=== PATIENT | female | born 1950 | race Two or more races ===

== ENCOUNTER 2020-02-21 13:02 | Inpatient (IN) | payer OTHER ==
[2020-02-29] MEDS ORDERED: ATORVASTATIN CA20 MG PO (10:23)
[2020-02-29] MEDS ORDERED: LEVO-T100 MCG PO (10:24)
[2020-02-29] MEDS ORDERED: DOXAZOSIN MESYLA2 MG PO (10:24)
[2020-02-29] MEDS ORDERED: HYDROCHLOROTHIA25 MG PO (10:25)
[2020-02-29] MEDS ORDERED: GABAPENTIN300 M2 PO (10:25)
[2020-02-29] MEDS ORDERED: PROTONIX40 MG PO (10:26)
[2020-02-29] MEDS ORDERED: TOPROL XL100 M1 PO (10:26)
[2020-02-29] MEDS ORDERED: ATACAND32 MG PO (10:26)
[2020-02-29] MEDS ORDERED: HUMULIN 70100 UNIT/2 SUBCUTANEO (10:27)
== END 2020-03-07 13:00 | disposition home or self-care (01) | DRG 842 ==
LOC: ADM 02-29 08:00 → O/R 03-06 07:00 → SURH 03-06 11:19 → O/R 03-06 11:19 → CIR.AMB 03-06 11:20 → EDSTATUS 03-07 08:00 → CIR.AMB 03-07 08:00 → O/R 03-07 13:00 → SURH 03-07 17:21
PROVIDERS: ADMIT Specialist; ATTEND Specialist
PROC: 30233P1 Transfusion of Nonautologous Frozen Red Cells into Peripheral Vein, Percutaneous Approach (ICD-10-PCS; 2020-03-06)
PROC: 05H533Z Insertion of Infusion Device into Right Subclavian Vein, Percutaneous Approach (ICD-10-PCS; 2020-03-07)
PROC: 0JHD3XZ Insertion of Tunneled Vascular Access Device into Right Upper Arm Subcutaneous Tissue and Fascia, Percutaneous Approach (ICD-10-PCS; principal; 2020-03-07 07:00)
DX: C90.00 Multiple myeloma not having achieved remission (principal); D64.9 Anemia, unspecified; I10 Essential (primary) hypertension; E11.9 Type 2 diabetes mellitus without complications; E03.8 Other specified hypothyroidism
CPT/HCPCS: 36561; C1751

== ENCOUNTER 2020-04-20 09:58 | Inpatient (IN) | payer OTHER ==
[~2020-04-20] VITALS: Ht 61 cm; Wt 5.0 kg
[~2020-04-20 09:58] MED LIST: ATACAND32 MG PO; ATORVASTATIN CA20 MG PO; DOXAZOSIN MESYLA2 MG PO; GABAPENTIN300 M2 PO; HUMULIN 70100 UNIT/2 SUBCUTANEO; HYDROCHLOROTHIA25 MG PO; LEVO-T100 MCG PO; PROTONIX40 MG PO; TOPROL XL100 M1 PO
[2020-04-24] MEDS ORDERED: Neurin-Sl Tablet Sl SL (12:05)
[2020-04-24] MEDS ORDERED: ATACAND32 MG PO (12:05)
[2020-04-24] MEDS ORDERED: LIPITOR20 MG PO (12:05)
[2020-04-24] MEDS ORDERED: GABAPENTIN300 MG PO (12:05)
[2020-04-24] MEDS ORDERED: HYDROCHLOROTHIA25 MG PO (12:05)
[2020-04-24] MEDS ORDERED: B Complex CAPSULE PO (12:05)
[2020-04-24] MEDS ORDERED: LEVOTHYROXINE100 MCG PO (12:05)
[2020-04-24] MEDS ORDERED: ST. JOSEPH ASPI81 M2 PO (12:05)
[2020-04-24] MEDS ORDERED: TRAMADOL HCL50 MG PO (12:05)
[2020-04-24] MEDS ORDERED: CARdura 2MG TABLET PO (12:05)
[2020-04-24] MEDS ORDERED: TOPROL XL100 M1 PO (12:05)
== END 2020-04-24 12:22 | disposition home or self-care (01) | DRG 842 ==
LOC: ER 09:58 → MEDJ 15:41 → MEDI 15:41
PROVIDERS: ADMIT Internal Medicine; ATTEND Internal Medicine
PROC: 30233N1 Transfusion of Nonautologous Red Blood Cells into Peripheral Vein, Percutaneous Approach (ICD-10-PCS; principal; 2020-04-20)
PROC: 05HC33Z Insertion of Infusion Device into Left Basilic Vein, Percutaneous Approach (ICD-10-PCS; 2020-04-20)
PROC: B54DZZZ Ultrasonography of Bilateral Lower Extremity Veins (ICD-10-PCS; 2020-04-21)
DX: C90.00 Multiple myeloma not having achieved remission (principal); Z92.21 Personal history of antineoplastic chemotherapy; D63.0 Anemia in neoplastic disease; E11.22 Type 2 diabetes mellitus with diabetic chronic kidney disease; N18.9 Chronic kidney disease, unspecified; D63.1 Anemia in chronic kidney disease; E11.21 Type 2 diabetes mellitus with diabetic nephropathy; E11.42 Type 2 diabetes mellitus with diabetic polyneuropathy; G89.3 Neoplasm related pain (acute) (chronic); Z20.828 Contact with and (suspected) exposure to other viral communicable diseases

== ENCOUNTER 2020-04-29 18:12 | Emergency (ER) | payer OTHER ==
[~2020-04-29] VITALS: Ht 160 cm; Wt 95.3 kg
[~2020-04-29 18:12] MED LIST changes: +B Complex CAPSULE PO; +CARdura 2MG TABLET PO; +GABAPENTIN300 MG PO; +LEVOTHYROXINE100 MCG PO; +LIPITOR20 MG PO; +Neurin-Sl Tablet Sl SL; +ST. JOSEPH ASPI81 M2 PO; +TRAMADOL HCL50 MG PO
[2020-04-29] MEDS ORDERED: REVLIMID25 MG PO (19:03)
[2020-04-29] MEDS ORDERED: ACYCLOVIR400 MG PO (19:03)
[2020-04-29] MEDS ORDERED: ECOTRIN81 MG PO (19:03)
== END 2020-04-30 01:04 | disposition home or self-care (01) ==
LOC: ER 18:12
DX: R10.13 Epigastric pain (principal); R10.32 Left lower quadrant pain; Z03.818 Encounter for observation for suspected exposure to other biological agents ruled out

== ENCOUNTER 2020-05-10 19:01 | Emergency (ER) | payer OTHER ==
[~2020-05-10] VITALS: Ht 160 cm; Wt 96.6 kg
[~2020-05-10 19:01] MED LIST changes: +ACYCLOVIR400 MG PO; +ECOTRIN81 MG PO; +REVLIMID25 MG PO
[2020-05-11] MEDS ORDERED: CALTRATE 600+D1 EACH PO (06:10)
== END 2020-05-11 06:25 | disposition home or self-care (01) ==
LOC: ER 19:01
DX: M54.5 Low back pain (principal); B34.9 Viral infection, unspecified; E83.51 Hypocalcemia

== ENCOUNTER 2020-05-24 20:10 | Emergency (ER) | payer OTHER ==
[~2020-05-24] VITALS: Ht 160 cm; Wt 95.3 kg
[~2020-05-24 20:10] MED LIST changes: +CALTRATE 600+D1 EACH PO
[2020-05-25] MEDS ORDERED: CALTRATE 600+D1 EACH PO (04:44)
== END 2020-05-25 05:33 | disposition home or self-care (01) ==
LOC: ER 20:10
DX: R20.2 Paresthesia of skin (principal); G25.2 Other specified forms of tremor; Z03.818 Encounter for observation for suspected exposure to other biological agents ruled out; E58 Dietary calcium deficiency

== ENCOUNTER 2020-05-29 16:27 | Emergency (ER) | payer OTHER ==
[~2020-05-29] VITALS: Ht 160 cm; Wt 94.8 kg
== END 2020-05-29 21:06 | disposition home or self-care (01) ==
LOC: ER 16:27
DX: M94.0 Chondrocostal junction syndrome [Tietze] (principal); R07.89 Other chest pain

== ENCOUNTER 2020-06-11 16:23 | Emergency (ER) | payer OTHER ==
[~2020-06-11] VITALS: Ht 160 cm; Wt 94.8 kg
[2020-06-12] MEDS ORDERED: PEPCID AC20 MG PO (01:07)
[2020-06-12] MEDS ORDERED: ONDANSETRON HCL4 MG PO (01:10)
== END 2020-06-12 01:25 | disposition home or self-care (01) ==
LOC: ER 16:23
DX: K29.60 Other gastritis without bleeding (principal); K52.89 Other specified noninfective gastroenteritis and colitis; C90.00 Multiple myeloma not having achieved remission; D63.0 Anemia in neoplastic disease; E87.6 Hypokalemia; E83.51 Hypocalcemia; Z03.818 Encounter for observation for suspected exposure to other biological agents ruled out

== ENCOUNTER 2020-06-19 18:36 | Inpatient (IN) | payer OTHER ==
[~2020-06-19] VITALS: Ht 160 cm; Wt 94.8 kg
[~2020-06-19 18:36] MED LIST changes: +ONDANSETRON HCL4 MG PO; +PEPCID AC20 MG PO
[2020-06-23] MEDS ORDERED: SUCRALFATE1 GM (09:20)
[2020-06-23] MEDS ORDERED: LANSOPRAZOLE30 MG (09:20)
[2020-06-23] MEDS ORDERED: B COMPLEX1 EACH (09:21)
[2020-06-23] MEDS ORDERED: B Complex CAPSULE PO (16:40)
[2020-06-23] MEDS ORDERED: SIMETHICONE125 M1 PO (16:40)
[2020-06-23] MEDS ORDERED: ATACAND32 MG PO (16:40)
[2020-06-23] MEDS ORDERED: TOPROL XL100 M1 PO (16:40)
[2020-06-23] MEDS ORDERED: LIPITOR20 MG PO (16:40)
[2020-06-23] MEDS ORDERED: Neurin-Sl Tablet Sl SL (16:40)
[2020-06-23] MEDS ORDERED: LEVOTHYROXINE100 MCG PO (16:40)
[2020-06-23] MEDS ORDERED: HYDROCHLOROTHIA25 MG PO (16:40)
[2020-06-23] MEDS ORDERED: GABAPENTIN300 MG PO (16:40)
== END 2020-06-23 17:08 | disposition home or self-care (01) | DRG 812 ==
LOC: ER 18:36 → MEDI 06-20 00:10 → SEC-K 06-20 00:10 → MEDI 06-20 11:31
PROVIDERS: ADMIT Internal Medicine; ATTEND Internal Medicine
PROC: 8E0ZXY6 Isolation (ICD-10-PCS; principal; 2020-06-20)
PROC: 30233N1 Transfusion of Nonautologous Red Blood Cells into Peripheral Vein, Percutaneous Approach (ICD-10-PCS; 2020-06-20)
DX: D64.9 Anemia, unspecified (principal); C90.00 Multiple myeloma not having achieved remission; E11.22 Type 2 diabetes mellitus with diabetic chronic kidney disease; I12.9 Hypertensive chronic kidney disease with stage 1 through stage 4 chronic kidney disease, or unspecified chronic kidney disease; N18.9 Chronic kidney disease, unspecified; E03.9 Hypothyroidism, unspecified; Z79.84 Long term (current) use of oral hypoglycemic drugs

== ENCOUNTER 2020-10-08 20:11 | Emergency (ER) | payer OTHER ==
[~2020-10-08] VITALS: Ht 160 cm; Wt 91.6 kg
[~2020-10-08 20:11] MED LIST changes: +B COMPLEX1 EACH; +LANSOPRAZOLE30 MG; +SIMETHICONE125 M1 PO; +SUCRALFATE1 GM
== END 2020-10-08 22:58 | disposition home or self-care (01) ==
LOC: ER 20:11 → CPU-OBS 21:07 → ER 21:07
DX: R07.89 Other chest pain (principal); M13.88 Other specified arthritis, other site

== ENCOUNTER 2020-10-11 07:10 | Outpatient (CLI) | payer OTHER | END 2020-10-11 15:00 | disposition home or self-care (01) | LOC: RAD 07:10 → LAB 07:10 | PROVIDERS: ATTEND Internal Medicine | DX: R07.89 Other chest pain (principal); C90.00 Multiple myeloma not having achieved remission ==

== ENCOUNTER 2020-10-13 07:57 | Outpatient (CLI) | payer OTHER | END 2020-10-13 09:02 | disposition home or self-care (01) | LOC: LAB 07:57 | PROVIDERS: ATTEND Internal Medicine | DX: C90.00 Multiple myeloma not having achieved remission (principal) ==

== ENCOUNTER 2020-12-26 15:47 | Emergency (ER) | payer OTHER ==
[~2020-12-26] VITALS: Ht 160 cm; Wt 96.2 kg
== END 2020-12-26 19:26 | disposition home or self-care (01) ==
LOC: ER 15:47
DX: E11.40 Type 2 diabetes mellitus with diabetic neuropathy, unspecified (principal); D64.9 Anemia, unspecified

== ENCOUNTER 2021-05-10 12:12 | Inpatient (IN) | payer OTHER ==
[~2021-05-10] VITALS: Ht 157.5 cm; Wt 93.9 kg
[2021-05-14] MEDS ORDERED: ALLOPURINOL100 MG (08:07)
[2021-05-14] MEDS ORDERED: ELIQUIS5 MG (08:07)
[2021-05-14] MEDS ORDERED: FAMOTIDINE40 MG (08:07)
[2021-05-14] MEDS ORDERED: OMEPRAZOLE40 MG (08:07)
[2021-05-14] MEDS ORDERED: PANTOPRAZOLE SO40 MG (08:08)
[2021-05-14] MEDS ORDERED: FUROSEMIDE20 MG (08:08)
[2021-05-14] MEDS ORDERED: DEXAMETHASONE4 MG (08:08)
[2021-05-14] MEDS ORDERED: SUCRALFATE1 GM (08:08)
[2021-05-14] MEDS ORDERED: CALCITRIOL0.5 MCG (08:08)
[2021-05-18] MEDS ORDERED: TOPROL XL100 M1 PO (12:56)
[2021-05-18] MEDS ORDERED: FOLIC ACID1 MG PO (12:56)
[2021-05-18] MEDS ORDERED: B COMPLEX1 EACH PO (12:56)
[2021-05-18] MEDS ORDERED: Neurin-Sl Tablet Sl SL (12:56)
[2021-05-18] MEDS ORDERED: INTESTINEX680 M1 PO (12:56)
[2021-05-18] MEDS ORDERED: XOPENEX0.63 MG/3 IH (12:56)
[2021-05-18] MEDS ORDERED: LEVOTHYROXINE100 MCG PO (12:56)
[2021-05-18] MEDS ORDERED: ECOTRIN81 MG PO (12:56)
[2021-05-18] MEDS ORDERED: DOXAZOSIN MESYLA2 MG PO (12:56)
[2021-05-18] MEDS ORDERED: ALLOPURINOL100 MG PO (12:56)
[2021-05-18] MEDS ORDERED: LIPITOR20 MG PO (12:56)
[2021-05-18] MEDS ORDERED: GABAPENTIN300 MG PO (12:56)
[2021-05-18] MEDS ORDERED: BENZONATATE100 MG PO (12:56)
== END 2021-05-18 15:45 | disposition home or self-care (01) | DRG 178 ==
LOC: ER 12:12 → MEDJ 05-11 12:39
PROVIDERS: ADMIT Internal Medicine; ATTEND Internal Medicine
PROC: BW24ZZZ Computerized Tomography (CT Scan) of Chest and Abdomen (ICD-10-PCS; principal; 2021-05-11)
PROC: 02HV33Z Insertion of Infusion Device into Superior Vena Cava, Percutaneous Approach (ICD-10-PCS; 2021-05-14)
DX: J69.0 Pneumonitis due to inhalation of food and vomit (principal); N39.0 Urinary tract infection, site not specified; C90.00 Multiple myeloma not having achieved remission; K52.89 Other specified noninfective gastroenteritis and colitis; E11.40 Type 2 diabetes mellitus with diabetic neuropathy, unspecified; Z79.4 Long term (current) use of insulin; E03.8 Other specified hypothyroidism; B96.89 Other specified bacterial agents as the cause of diseases classified elsewhere; Z20.822 Contact with and (suspected) exposure to COVID-19; I10 Essential (primary) hypertension; Z94.6 Bone transplant status

== ENCOUNTER 2021-06-01 19:07 | Emergency (ER) | payer OTHER ==
[~2021-06-01] VITALS: Ht 160 cm; Wt 91.6 kg
[~2021-06-01 19:07] MED LIST changes: +ALLOPURINOL100 MG; +ALLOPURINOL100 MG PO; +B COMPLEX1 EACH PO; +BENZONATATE100 MG PO; +CALCITRIOL0.5 MCG; +DEXAMETHASONE4 MG; +ELIQUIS5 MG; +FAMOTIDINE40 MG; +FOLIC ACID1 MG PO; +FUROSEMIDE20 MG; +INTESTINEX680 M1 PO; +OMEPRAZOLE40 MG; +PANTOPRAZOLE SO40 MG; +XOPENEX0.63 MG/3 IH
[2021-06-01] MEDS ORDERED: DULOXETINE 30 MG (19:40)
== END 2021-06-01 23:46 | disposition home or self-care (01) ==
LOC: ER 19:07
DX: R11.0 Nausea (principal); M54.59 Other low back pain; E11.40 Type 2 diabetes mellitus with diabetic neuropathy, unspecified

== ENCOUNTER 2021-06-29 07:44 | Outpatient (CLI) | payer OTHER ==
[~2021-06-29 07:44] MED LIST changes: +DULOXETINE 30 MG
== END 2021-06-29 07:45 | disposition home or self-care (01) ==
LOC: LAB 07:44
PROVIDERS: ATTEND Internal Medicine Hematology & Oncology
DX: D50.8 Other iron deficiency anemias (principal); I10 Essential (primary) hypertension; R74.02 Elevation of levels of lactic acid dehydrogenase [LDH]; K76.89 Other specified diseases of liver; E78.2 Mixed hyperlipidemia; E03.8 Other specified hypothyroidism; D47.2 Monoclonal gammopathy; C90.00 Multiple myeloma not having achieved remission; R97.0 Elevated carcinoembryonic antigen [CEA]; R97.8 Other abnormal tumor markers; D63.0 Anemia in neoplastic disease; E11.22 Type 2 diabetes mellitus with diabetic chronic kidney disease

== ENCOUNTER 2021-07-29 12:37 | Inpatient (IN) | payer OTHER ==
[~2021-07-29] VITALS: Ht 157.5 cm; Wt 98.0 kg
[2021-07-29] MEDS ORDERED: CYANOCOBAL1000 MCG/1 (13:31)
[2021-07-29] MEDS ORDERED: INTEGRA PLUS C1 EACH (13:32)
[2021-07-31] MEDS ORDERED: DULOXETINE HCL30 MG (10:53)
[2021-07-31] MEDS ORDERED: ABANEU-SL TABL1 EACH (10:54)
== END 2021-07-31 14:36 | disposition home or self-care (01) | DRG 206 ==
LOC: ER 12:37 → MEDI 19:39
PROVIDERS: ADMIT Internal Medicine; ATTEND Internal Medicine
PROC: 02HV33Z Insertion of Infusion Device into Superior Vena Cava, Percutaneous Approach (ICD-10-PCS; principal; 2021-07-29)
PROC: B24BZZZ Ultrasonography of Heart with Aorta (ICD-10-PCS; 2021-07-30)
DX: M94.0 Chondrocostal junction syndrome [Tietze] (principal); C90.00 Multiple myeloma not having achieved remission; N39.0 Urinary tract infection, site not specified; I25.118 Atherosclerotic heart disease of native coronary artery with other forms of angina pectoris; D63.1 Anemia in chronic kidney disease; R07.89 Other chest pain; E78.49 Other hyperlipidemia; E11.21 Type 2 diabetes mellitus with diabetic nephropathy; Z79.4 Long term (current) use of insulin; I12.9 Hypertensive chronic kidney disease with stage 1 through stage 4 chronic kidney disease, or unspecified chronic kidney disease; E11.22 Type 2 diabetes mellitus with diabetic chronic kidney disease; N18.9 Chronic kidney disease, unspecified; Z94.6 Bone transplant status; Z20.822 Contact with and (suspected) exposure to COVID-19; B96.89 Other specified bacterial agents as the cause of diseases classified elsewhere; E66.8 Other obesity

== ENCOUNTER 2021-08-28 20:31 | Emergency (ER) | payer OTHER ==
[~2021-08-28] VITALS: Ht 162.6 cm; Wt 114.3 kg
[~2021-08-28 20:31] MED LIST changes: +ABANEU-SL TABL1 EACH; +CYANOCOBAL1000 MCG/1; +DULOXETINE HCL30 MG; +INTEGRA PLUS C1 EACH
[2021-08-29] MEDS ORDERED: MOBIC15 MG PO (05:38)
== END 2021-08-29 06:13 ==
LOC: ER 20:31
DX: R07.89 Other chest pain (principal); Z20.822 Contact with and (suspected) exposure to COVID-19

== ENCOUNTER 2021-09-05 23:17 | Inpatient (IN) | payer OTHER ==
[~2021-09-05] VITALS: Ht 160 cm; Wt 95.3 kg
[~2021-09-05 23:17] MED LIST changes: +MOBIC15 MG PO
[2021-09-06] MEDS ORDERED: RETACRIT10000 UNIT (11:41)
[2021-09-06] MEDS ORDERED: ZANAFLEX2 MG (11:41)
[2021-09-06] MEDS ORDERED: MECLIZINE HCL25 MG (11:42)
[2021-09-06] MEDS ORDERED: VITAMIN D3250 MCG (11:43)
[2021-09-06] MEDS ORDERED: PREGABALIN75 MG (11:43)
== END 2021-09-17 17:06 | disposition home or self-care (01) | DRG 372 ==
LOC: ER 23:17 → SEC-K 09-06 10:11 → MEDJ 09-06 16:06
PROVIDERS: ADMIT Specialist; ATTEND Specialist
PROC: 02HV33Z Insertion of Infusion Device into Superior Vena Cava, Percutaneous Approach (ICD-10-PCS; 2021-09-07)
PROC: 30233N1 Transfusion of Nonautologous Red Blood Cells into Peripheral Vein, Percutaneous Approach (ICD-10-PCS; 2021-09-08)
PROC: BW21YZZ Computerized Tomography (CT Scan) of Abdomen and Pelvis using Other Contrast (ICD-10-PCS; 2021-09-10)
PROC: BW24ZZZ Computerized Tomography (CT Scan) of Chest and Abdomen (ICD-10-PCS; principal; 2021-09-12)
DX: A04.72 Enterocolitis due to Clostridium difficile, not specified as recurrent (principal); N39.0 Urinary tract infection, site not specified; C90.00 Multiple myeloma not having achieved remission; C79.51 Secondary malignant neoplasm of bone; B96.89 Other specified bacterial agents as the cause of diseases classified elsewhere; E11.21 Type 2 diabetes mellitus with diabetic nephropathy; Z79.4 Long term (current) use of insulin; E03.8 Other specified hypothyroidism; D63.0 Anemia in neoplastic disease; Z94.6 Bone transplant status; R09.02 Hypoxemia; I10 Essential (primary) hypertension

== ENCOUNTER 2021-10-26 19:56 | Emergency (ER) | payer OTHER ==
[~2021-10-26] VITALS: Ht 160 cm; Wt 95.3 kg
[~2021-10-26 19:56] MED LIST changes: +MECLIZINE HCL25 MG; +PREGABALIN75 MG; +RETACRIT10000 UNIT; +VITAMIN D3250 MCG; +ZANAFLEX2 MG
[2021-10-26] MEDS ORDERED: ORPHENADRINE C100 MG PO (20:13)
== END 2021-10-26 20:35 | disposition home or self-care (01) ==
LOC: ER 19:56
DX: M62.838 Other muscle spasm (principal); I10 Essential (primary) hypertension; Z85.9 Personal history of malignant neoplasm, unspecified; Z91.041 Radiographic dye allergy status; Z88.6 Allergy status to analgesic agent; E11.9 Type 2 diabetes mellitus without complications; Z79.4 Long term (current) use of insulin

== ENCOUNTER 2022-05-05 09:00 | Emergency (ER) | payer OTHER ==
[~2022-05-05] VITALS: Ht 152.4 cm; Wt 72.6 kg
[~2022-05-05 09:00] MED LIST changes: +ORPHENADRINE C100 MG PO
[2022-05-05] MEDS ORDERED: CYCLOBENZAPRINE10 MG PO (12:58)
== END 2022-05-05 14:30 | disposition home or self-care (01) ==
LOC: ER 09:00
DX: M62.838 Other muscle spasm (principal); E11.9 Type 2 diabetes mellitus without complications; Z79.84 Long term (current) use of oral hypoglycemic drugs; I10 Essential (primary) hypertension; Z88.8 Allergy status to other drugs, medicaments and biological substances

== ENCOUNTER → 2022-12-26 | Emergency (ER) | payer OTHER ==
[~2022-12-26] VITALS: Ht 167.6 cm; Wt 99.8 kg
[~2022-12-26] MED LIST changes: +CYCLOBENZAPRINE10 MG PO; +DICY20TA PO; +ZOFRAN8 MG PO
== END | disposition home or self-care (01) ==
LOC: ER 13:29
DX: K52.9 Noninfective gastroenteritis and colitis, unspecified (principal); R10.9 Unspecified abdominal pain; E11.9 Type 2 diabetes mellitus without complications; I10 Essential (primary) hypertension; Z88.6 Allergy status to analgesic agent; Z91.041 Radiographic dye allergy status
CPT/HCPCS: 36415; 96365; 99283; J7030

== ENCOUNTER 2023-03-06 18:31 | Emergency (ER) | payer OTHER ==
[~2023-03-06] VITALS: Ht 160 cm; Wt 93.4 kg
[2023-03-06 20:54] LABS: HEMATOCRIT 37.8 % (36.0-45.00); MEAN CELL VOLUME 93.5 fL (80.00-100.00); MEAN CORPUSCULAR HEMOGLOBIN 29.8 pg (27.00-32.0); MEAN CORPUSCULAR HGB CONC 31.8 g/dl (32.0-36.0); RED BLOOD COUNT 4.04 M/uL (4.00-6.00); RED CELL DISTRIBUTION WIDTH 15.1 % (11.5-14.5)
[2023-03-06 21:33] LABS: PLATELET COUNT 92 K/uL (150-450)
== END 2023-03-06 22:50 | disposition home or self-care (01) ==
LOC: ER 18:31
DX: J06.9 Acute upper respiratory infection, unspecified (principal); R53.81 Other malaise; Z91.041 Radiographic dye allergy status; Z88.6 Allergy status to analgesic agent; M19.90 Unspecified osteoarthritis, unspecified site; J45.909 Unspecified asthma, uncomplicated; I10 Essential (primary) hypertension; Z20.822 Contact with and (suspected) exposure to COVID-19
CPT/HCPCS: 36415; 96372; 99284; J0696

== ENCOUNTER → 2023-04-08 08:09 | Outpatient (CLI) | payer OTHER | END | disposition home or self-care (01) | LOC: NUCLEAR 08:00 | PROVIDERS: ATTEND Internal Medicine Hematology & Oncology | DX: I82.401 Acute embolism and thrombosis of unspecified deep veins of right lower extremity (principal); C90.00 Multiple myeloma not having achieved remission; D63.0 Anemia in neoplastic disease; I10 Essential (primary) hypertension; E11.22 Type 2 diabetes mellitus with diabetic chronic kidney disease ==